=== PATIENT | female | born 1970 | race Caucasian/White ===

== ENCOUNTER 2020-12-05 13:46 | Observation (INO) | payer BC ==
[2020-12-05] MEDS ORDERED: Aspirin Chewable 81 MG TAB ONE (14:35)
[2020-12-05] MEDS ORDERED: Nitroglycerin 0.4 MG TAB (25 Tab Bottle) SL PRN (15:23)
[2020-12-05 17:24] VITALS: BMI 35.5
[2020-12-05] MEDS ORDERED: Rosuvastatin 10 MG TAB PO SCH (21:00)
[2020-12-05] MEDS ORDERED: traZODone HCl 50 MG TAB PO SCH (21:00)
[2020-12-05] MEDS ORDERED: Communication Order-Pharmacy FS SCH (21:00)
[2020-12-05] MEDS: Acetaminophen 325 MG TAB PO PRN (21:19)
[2020-12-06] MEDS ORDERED: Metoclopramide HCl 10 MG/2 ML VIAL IVP SCH (00:15)
[2020-12-06] MEDS ORDERED: diphenhydrAMINE 50 MG/ML VIAL IVP SCH (00:15)
[2020-12-06] MEDS ORDERED: Ketorolac Tromethamine 30 MG/ML VIAL IVP SCH (00:15)
[2020-12-06 02:23] LABS: SARS-CoV-2 PCR by NAA Not Detected (NotDetected)
[2020-12-06 04:58] LABS: #Eosinphils 0.1 10x3/uL (0.0-0.5); #Monocytes 0.7 10x3/uL (0.0-1.1); #Neutrophils 3.9 10x3/uL (1.5-8.4); %Basophils 0.3 % (0.0-2.0); %Eosinophils 0.9 % (0.0-6.0); %Lymphocytes 32.7 % (18.0-47.0); %Neutrophils 55.8 % (40.0-75.0); Hemoglobin 11.7 g/dL (12.0-15.5); Mean Corpuscular HGB CONC 32.1 g/dL (32.0-36.0); Mean Corpuscular Hemoglobin 27.5 pg (27.0-33.0); Mean Corpuscular Volume 85.9 fl (81.6-98.3); Mean Platelet Volume 10.5 fl (7.4-10.4); Platelet Count 209 10x3/uL (150-450); RBC Distribution Width 13.4 % (11.5-14.5); Red Blood Cell (RBC) Count 4.25 10x6/uL (3.90-5.03); White Blood Cell (WBC) Count 6.9 10x3/uL (3.5-10.5)
[2020-12-06 05:47] LABS: PTT 28.8 sec (22.0-33.0); Prothrombin Time 10.9 sec (9.5-12.1)
[2020-12-06] MEDS ORDERED: Levothyroxine Sodium 125 MCG TAB PO SCH (06:00)
[2020-12-06] MEDS ORDERED: Levothyroxine Sodium 112 MCG TAB PO SCH (06:00)
[2020-12-06] MEDS ORDERED: Sodium Chloride 0.9% 1,000 ML IV SCH (06:00)
[2020-12-06] MEDS ORDERED: Aspirin Chewable 81 MG TAB PO SCH (09:00)
[2020-12-06] MEDS ORDERED: Propranolol HCl LA 80 MG CAP PO SCH (09:00)
[2020-12-06] MEDS: Acetaminophen 325 MG TAB PO PRN (09:41)
[2020-12-06] MEDS ORDERED: Heparin 10,000 UNITS/ 10 ML VIAL ONE (09:45)
[2020-12-06] MEDS ORDERED: Nitroglycerin 50 MG/250 ML BOT 250 ML ONE (09:45)
[2020-12-06] MEDS ORDERED: Adenosine 6 MG/2 ML VIAL ONE (09:46)
[2020-12-06] MEDS ORDERED: Lidocaine 1% (PF) 30 ML VIAL ONE (10:33)
[2020-12-06] MEDS ORDERED: Fentanyl 100 MCG/2 ML VIAL ONE (10:36)
[2020-12-06] MEDS ORDERED: Midazolam HCl 2 mg/2 ml Vial ONE (10:37)
[2020-12-06] MEDS ORDERED: SUMAtriptan Succinate 50 MG TAB PO SCH (11:30)
[2020-12-06] MEDS ORDERED: traMADol HCl 50 MG TAB PO PRN (12:05)
[2020-12-06] MEDS ORDERED: Ondansetron PF 4 MG/2 ML Vial IVP PRN (12:06)
[2020-12-06] MEDS ORDERED: Sodium Chloride 0.9% 200 ML IV PRN (13:03)
[2020-12-06] MEDS ORDERED: Acetaminophen/Codeine 30-300mg Tablet PO PRN ×2 (13:03)
[2020-12-06 13:40] VITALS: BP 103/68; TEMP 97.4
== END 2020-12-06 17:55 | disposition home or self-care (01) ==
LOC: CSHERS 13:46 → CSHTELE 15:42
PROVIDERS: ADMIT Family Medicine; ATTEND Internal Medicine
DX: R07.2 Precordial pain (principal); I25.10 Atherosclerotic heart disease of native coronary artery without angina pectoris; I25.5 Ischemic cardiomyopathy; E78.5 Hyperlipidemia, unspecified; E66.9 Obesity, unspecified; E03.9 Hypothyroidism, unspecified; Z79.899 Other long term (current) drug therapy; G43.009 Migraine without aura, not intractable, without status migrainosus
CPT/HCPCS: 71045; 84484; 85025; 85610; 85730; 87635; 93005; 93458; 94760; 96374; 96375; 99152; 99153; G0378; J0153; J1200; J1644; J1885; J2001; J2250; J2405; J2765; J3010; U0003; U0005